=== PATIENT | female | born 1945 | race Caucasian/White ===

== ENCOUNTER 2016-07-30 09:45 | Outpatient (CLI) | payer MEDICARE, BC ==
[2014-08-16 14:07] VITALS: BP 146/90
== END 2016-07-30 09:46 ==
LOC: RT 09:45
PROVIDERS: ATTEND Nurse Practitioner Family
DX: Z01.810 Encounter for preprocedural cardiovascular examination (principal)

== ENCOUNTER 2018-07-18 09:40 | Outpatient (CLI) | payer MEDICARE, BC ==
[2014-08-16 14:07] VITALS: BP 146/90
--- NOTE | 2018-07-21 11:35 | Diagnostic Imaging Report ---
LIBBY LARSON (ROB) - OP [facility] [id number] [id number] Report Submission Date: Jul 21, 2018 6:20:20 AM EMPLOYEE ADVISER Patient Study Name: PEDRO TAVAREZ Date: Jul 18, 2018 12:00:00 AM EMPLOYEE ADVISER Modality Type: DEXA\OT Gender: F Description: BONE DENSITY : 45 Institution: [facility] Physician: LIBBY LARSON) - OP HISTORY: 72-year-old female with osteoporosis screening COMPARISON: None available. TECHNIQUE: Dual energy x-ray of absorption examination of the bilateral hips and lumbar spine in AP projection was performed. Bilateral Hips: The mean bone mineral density of the hips is 0.910 g/cm2 calcium hydroxyapatite, correlating with a T-score of -0.8. Lumbar Spine (L1-L4): The mean bone mineral density of the lumbar spine is 1.882 g/cm2 hydroxyapatite, correlating with a T-score of 5.8. IMPRESSION: 1. The patient's bilateral hip T-score is consistent with normal bone mineral density overall. It should be noted that the BMD of the femoral necks is consistent with osteopenia. 2. The patient's lumbar spine T-score is consistent with greater than normal bone mineral density. Bone mineral density of the lumbar spine is artifactually increased. Some of this artifact is related to degenerative disc disease, although there may be other technical factors involved. Electronically signed on Jul 21, 2018 6:20:20 AM EMPLOYEE ADVISER by: Rc MASTERSON
== END 2018-07-18 09:42 ==
LOC: RAD 09:40
PROVIDERS: ATTEND Nurse Practitioner Family
DX: Z78.0 Asymptomatic menopausal state (principal); Z13.820 Encounter for screening for osteoporosis
CPT/HCPCS: 77080